=== PATIENT | female | born 1980 | race Caucasian/White ===

== ENCOUNTER 2021-04-04 15:44 | Emergency (ER) | payer SELFPAY ==
[~2021-04-04] VITALS: Ht 175.3 cm; Wt 72.7 kg
[2021-04-04 16:22] LABS: ANION GAP 8 mmol/L (5-15); CALCIUM 8.8 mg/dL (8.5-10.1); CHLORIDE 109 mmol/L (98-107); CREATININE 0.65 mg/dL (0.55-1.02); SALICYLATE LEVEL < 1.7 mg/dL (2.8-20.0)
[2021-04-04 16:28] LABS: BASOPHILS % (AUTO) 1 % (0-1); EOSINOPHILS % (AUTO) 0 % (1-7); LYMPHOCYTES % (AUTO) 11 % (22-44); MEAN CORPUSCULAR HEMOGLOBIN 30.8 pg (27.0-34.8); MEAN CORPUSCULAR HGB CONC 34.1 g/dL (32.4-35.8); MEAN PLATELET VOLUME 8.1 fL (7.4-10.4); MONOCYTES % (AUTO) 8 % (2-9); NEUTROPHILS % (AUTO) 80 % (42-75); PLATELET COUNT 402 x10^3/uL (130-400); RED BLOOD COUNT 4.47 x10^6/uL (3.82-5.3); RED CELL DISTRIBUTION WIDTH 12.6 % (9.6-15.2)
--- NOTE | 2021-04-04 16:33 | NUR ---
BIBA ON L2K AFTER LEAVING [facility] AFTER 2 YEAR STAY FOR WORRY OF FAILURE TO THRIVE. PT W/ EXTENSIVE PSYCH HISTORY SCHIZOPHRENIA. PT RESTING ON BED. SITTER AT BEDSIDE. SAFETY PRECAUTIONS IN PLACE. PT STATES SHES HERE "TO HAVE CATAPILLER REMOVED FROM MY BACK." PT WITH FLIGHT OF IDEAS AND OCCASIONAL SLURRED SPEECH.
[2021-04-04 17:21] LABS: AMPHETAMINE SCREEN, URINE Negative (Negative); BARBITURATE SCREEN, URINE Negative (Negative); BENZODIAZEPINE SCREEN, URINE Negative (Negative); CANNABINOID SCREEN, URINE Negative (Negative); COCAINE SCREEN, URINE Negative (Negative); METHADONE SCREEN, URINE Negative (Negative); OPIATE SCREEN, URINE Negative (Negative)
--- NOTE | 2021-04-04 18:30 | NUR ---
PT RESTING IN BED. NADN. SITTER AT BEDSIDE. SAFETY PRECAUTIONS IN PLACE.
--- NOTE | 2021-04-04 18:59 | NUR ---
FIRST ENCOUNTER WITH PATIENT. PATIENT LYING IN STRETCHER. NAD. PATIENT DENIES NEEDS AT THIS TIME. SI PRECAUTIONS IN PLACE. 1:[address] ROOM REMAINS SECURE. WILL CONTINUE TO MONITOR.
--- NOTE | 2021-04-04 20:00 | NUR ---
PATIENT RESTING IN STRETCHER. DENIES NEEDS AT THIS TIME. 1:[address] WILL CONTINUE TO MONITOR.
--- NOTE | 2021-04-04 21:00 | NUR ---
PATIENT RESTING IN STRETCHER. DENIES NEEDS AT THIS TIME. 1:[address] WILL CONTINUE TO MONITOR.
--- NOTE | 2021-04-04 21:12 | NUR ---
FAXED TO [facility]
--- NOTE | 2021-04-04 22:00 | NUR ---
PATIENT RESTING IN STRETCHER. DENIES NEEDS AT THIS TIME. 1:[address] WILL CONTINUE TO MONITOR.
--- NOTE | 2021-04-04 23:05 | NUR ---
PATIENT RESTING IN STRETCHER WITH EYES CLOSED. NAD. DENIES NEEDS AT THIS TIME. 1:[address] WILL CONTINUE TO MONITOR.
--- NOTE | 2021-04-05 | NUR ---
PATIENT RESTING IN STRETCHER WITH EYES CLOSED. NAD. DENIES NEEDS AT THIS TIME. 1:[address] WILL CONTINUE TO MONITOR.
--- NOTE | 2021-04-05 01:04 | NUR ---
PATIENT RESTING IN STRETCHER WITH EYES CLOSED. NAD. DENIES NEEDS AT THIS TIME. 1:[address] WILL CONTINUE TO MONITOR.
--- NOTE | 2021-04-05 02:06 | NUR ---
PATIENT RESTING IN STRETCHER WITH EYES CLOSED. NAD. DENIES NEEDS AT THIS TIME. 1:[address] WILL CONTINUE TO MONITOR.
--- NOTE | 2021-04-05 03:15 | NUR ---
PATIENT RESTING IN STRETCHER WITH EYES CLOSED. NAD. 1:[address] WILL CONTINUE TO MONITOR.
--- NOTE | 2021-04-05 03:32 | NUR ---
Patti beltre in [facility] - 04/05/21 at 0339 by BANDAR PATIENT NOW SPEAKING WITH TELEPSYCH ON THE PHONE FOR EVAL.
--- NOTE | 2021-04-05 04:08 | NUR ---
PATIENT LYING IN STRETCHER WITH EYES CLOSED. NAD. 1:[address] WILL CONTINUE TO MONITOR.
--- NOTE | 2021-04-05 05:00 | NUR ---
PATIENT LYING IN STRETCHER WITH EYES CLOSED. NAD. 1:[address] WILL CONTINUE TO MONITOR.
--- NOTE | 2021-04-05 05:56 | NUR ---
PATIENT PROVIDED WITH JUICE REQUESTED.
--- NOTE | 2021-04-05 06:21 | NUR ---
PATIENT LYING IN STRETCHER WITH EYES CLOSED. NAD. 1:[address] WILL CONTINUE TO MONITOR.
--- NOTE | 2021-04-05 06:53 | NUR ---
REPORT GIVEN TO SANJEEV HOUSER.
--- NOTE | 2021-04-05 08:00 | NUR ---
PT TRANSFERED TO HOSPITAL BED W/O INCIDENT. GARAGE DOORS DOWN X2 AND SITTER OUTSIDE ROOM FOR SAFETY. RESP EVEN AND UNLABORED, NADN.
[2021-04-05 08:01] VITALS: BP 111/73
[2021-04-05] MEDS ORDERED: ACETAMINOPHEN 500 MG TABLET ONE (08:43)
--- NOTE | 2021-04-05 08:54 | NUR ---
SAFETY DIET TRAY DELIVERED. PT MEDICATED W/ TYLENOL FOR C/O NECK/BACK PAIN. GARGE DOORS DOWNX2 AND SITTER OUTSIDE ROOM FOR SAFETY. RESP EVEN AND UNLABORED, CHERRY.
[2021-04-05] MEDS ORDERED: ACETAMINOPHEN 325 MG TABLET PO ONE (09:30)
--- NOTE | 2021-04-05 09:38 | NUR ---
PT PROVIDED W/ COFFEE PER PT REQUEST.
--- NOTE | 2021-04-05 10:19 | NUR ---
PT RESTING ON HOSPITAL BED W/ GARAGE DOORS DOWN X2 AND SITTER OUTSIDE ROOM FOR SAFETY. RESP EVEN AND UNLABORED, NADN.
--- NOTE | 2021-04-05 11:38 | NUR ---
PT RESTING ON HOSPITAL BED W/ GARAGE DOORS DOWN X2 AND SITTER OUTSIDE ROOM FOR SAFETY. RESP EVEN AND UNLABORED, NADN.
--- NOTE | 2021-04-05 11:59 | NUR ---
SHANE FERRIS AT BEDSIDE.
--- NOTE | 2021-04-05 12:32 | NUR ---
PT PROVIDED W/ SAFETY DIET TRAY.
--- NOTE | 2021-04-05 13:45 | NUR ---
PER SHANE FERRIS, L2K DISCONTINUED. PT TO BE PICKED UP @1500 BY [employer] TO GO TO [facility].
--- NOTE | 2021-04-05 13:53 | NUR ---
BELONGINGS BAG RETURNED TO PT.
--- NOTE | 2021-04-05 14:57 | NUR ---
PT REFUSING TRANSPORT TO [facility] BY [employer]. BRANDY AGUILAR CONTACTED, WILL COME SPEAK W/ PT.
--- NOTE | 2021-04-05 15:07 | NUR ---
BRANDY AGUILAR AT BEDSIDE.
--- NOTE | 2021-04-05 15:30 | NUR ---
PT REFUSED [facility]SPORT AND REFUSING DC.
--- NOTE | 2021-04-05 15:43 | NUR ---
[facility] SPEAKING W/ PT.
--- NOTE | 2021-04-05 15:47 | NUR ---
PT OVERHEARD ASKING [facility] TO TAKE HER TO [facility] BECAUSE SHE DOES NOT WANT TO LEAVE ED. PT FULLY CLOTHED, ESCORTED OUT W/ 2 OFFICERS IN [employer]CUFFS, COOPERATIVELY. WHILE WALKING OUT W/ [employer] PT REQUESTED OFFICERS TO THROW AWAY REMAINING BELONGINGS.
== END 2021-04-05 16:08 ==
LOC: ED 18:35
DX: F22 Delusional disorders (principal); F41.9 Anxiety disorder, unspecified
CPT/HCPCS: 36415; 80048; 80299; 80307; 80320; 80329; 82040; 84443; 84703; 85025; 99283; 99285; G0480